=== PATIENT | male | born 1990 | race Caucasian/White ===

== ENCOUNTER 2017-06-06 05:39 | Day surgery (SDC) | payer OTHER ==
[2017-06-06] VITALS (8 sets, daily range): BP systolic 116–134; BP diastolic 60–87
[~2017-06-06] VITALS: Ht 177.8 cm; Wt 97.5 kg
--- NOTE | ~2017-06-06 | O ---
[facility] [place] [address] OPERATIVE REPORT Name: MANDI GORDON Room #: 548-I [facility].#: [id number] Admission: 06/06/17 Attend Phys: Prabhjot Hanks MD Discharge: Date of : 89 Report #: [id number] THIS REPORT FOR: //name// CC: FAM chiki Cordova DATE OF SERVICE: 06/06/2017 PATIENT OF: Dr. Prabhjot Hanks and Dr. German Moser. PREOPERATIVE DIAGNOSES: Cholelithiasis, cholecystitis, and biliary colic. POSTOPERATIVE DIAGNOSES: Cholelithiasis, cholecystitis, and biliary colic. PROCEDURE: Laparoscopic cholecystectomy with intraoperative cholangiography under fluoroscopic guidance. SURGEON: Prabhjot Hanks MD MEDICAL RESEARCH TECH: Jazmin Castellon RN ANESTHESIA: General. DESCRIPTION OF PROCEDURE: The patient was brought to the operating room and placed on operative table in the supine position. Sequential compression devices were in place for DVT prophylaxis. He was given an appropriate preoperative dose of antibiotics. The patient underwent a general endotracheal anesthesia and the abdomen was then prepped and draped in a sterile fashion. Skin and subcutaneous tissue around the umbilicus was then infiltrated with 0.5% Marcaine. Infraumbilical skin incision was then performed using #11 scalpel blade. Hemostasis obtained using electrocautery. Dissection was carried down through subcutaneous tissue to the fascia, which was then grasped between 2 Juan clamps and incised with the curved Taylor scissors. Peritoneum was entered and a pursestring suture of 0 Vicryl was then placed in the fascia. A 12-mm disposable Jaylene port was inserted through the opening and held into place with the balloon port and the pursestring suture. Pneumoperitoneum was obtained to a level of 10-15 mmHg. Laparoscope was inserted through this port and an exploration was performed, which revealed a very enlarged thickened dilated gallbladder with adhesions around it. There were no other intraabdominal abnormalities. Two lateral 5-mm Surgiport as well as an upper midline 11-mm Surgiport were all inserted under direct visualization after infiltration with 0.5% Marcaine. The gallbladder was then grasped and retracted superiorly and the cystic duct and artery were carefully dissected free. The cystic artery was doubly clipped on each side and divided with the scissors. I dissected the cystic duct all the way down to what appeared to be the cystic common bile duct [address] [address] OPERATIVE REPORT Name: MANDI GORDON Room #: 548-I [facility]#: [id number] Admission: 06/06/17 Attend Phys: Prabhjot Hanks MD Discharge: Date of : 89 Report #: [id number] junction, but I was not entirely sure. I decided to perform an intraoperative cholangiogram to be assured of the anatomy. An Angiocath was then inserted into the abdomen and the taut laparoscopic cholangiogram catheter was inserted through this Angiocath into the abdomen. A small opening was made in the cystic duct and the catheter was threaded into the cystic duct and held into place with a clip. Intraoperative cholangiography was then performed under fluoroscopic guidance, which showed free flow of contrast into the common bile duct and into the duodenum. The proximal common hepatic and right and left hepatic ducts were clearly identified. The clip was then removed. The catheter was removed and three clips were then placed on the cystic duct and the cystic duct was divided with the scissors. The gallbladder was then dissected free from the bed using the hook electrocautery. Prior to completing this dissection, the gallbladder was retracted superiorly and the bed inspected for hemostasis, which was obtained using electrocautery as well as several additional clips. After assuring hemostasis was intact, gallbladder was then transected from the bed and brought out through the periumbilical port and sent as specimen to pathology. The port was then returned to the abdomen. The area was then copiously irrigated with warm saline solution, which was suctioned free and hemostasis was checked and found to be intact. The ports were then all removed under direct visualization, hemostasis intact at each port site. Pneumoperitoneum was released and the periumbilical port was then also removed under direct visualization, hemostasis intact at that port site as well. The periumbilical fascia was then closed using the 0 Vicryl pursestring suture. The upper midline fascia was then closed using a julktt-ad-wmyft 0 Vicryl suture. Skin was then closed using interrupted vertical mattress 5-0 nylon sutures and the wound was dressed with Band-Aids. The patient was then awakened from the general endotracheal anesthesia, extubated, and taken to recovery room in good condition. Estimated blood loss was approximately 50 mL and the patient tolerated procedure well. All sponge, lap and instrument counts correct times 2. By: 1621 [id number] Prabhjot Hanks MD /nt
--- NOTE | ~2017-06-06 | S ---
[facility] [place] [address] SURGICAL PATH RPT PROCEDURE Name: LUCIANO GORDON Room #: DEP [facility]..#: [id number] Admission: 06/06/17 Date of : 89 Discharge: 06/06/17 Report #: [id number] Path Case #: [id number] PATHOLOGY REPORT COLLECTION DATE: 06/06/2017 RECEIVED DATE: 06/09/2017 SUBMITTING PHYS: Dr. Prabhjot Hanks OTHER PHYS: SPECIMEN(S) RECEIVED: A.Gallbladder * * * * * * * * * * * * FINAL DIAGNOSIS: Gallbladder, cholecystectomy: - Mild chronic cholecystitis. - Cholelithiasis. PATHOLOGIST: Eugenie Ridley M.D. REPORT ELECTRONICALLY SIGNED BY: Eugenie Ridley M.D. DATE/TIME: 06/10/2017 15:26 * * * * * * * * * * * * GROSS PATHOLOGY: Received in formalin labeled "Luciano Gordon, gallbladder," is a 11.5 x 4.8 x 2.1 cm, previously opened gallbladder with smooth, shiny, pale yellowtan serosal surfaces. The gallbladder is opened to show a pale tanyellow, spongy, bile stained mucosa and an average wall thickness of 0.3 cm. Calculi are present and no masses are noted grossly. [employer] sections from the body and fundus are submitted along with the proximal margin in cassette A1. (SNA; 06/09/2017) CLINICAL HISTORY: Cholecystitis and cholelithiasis INITIAL CPT CODE(S): A; 32232 Professional services performed by [facility] at [facility] [address] [place] [address] Technical services performed by [facility] at [address] [place] [address] [id number] [facility] [address] [place] [address] SURGICAL PATH RPT PROCEDURE Name: LUCIANO GORDON Room #: DEP [facility]#: [id number] Admission: 06/06/17 Date of : 89 Discharge: 06/06/17 Report #: [id number] Path Case #: [id number] [address] PHONE: [phone] DIRECTOR: Thomas Payne M.D. * * * END OF REPORT * * *
[~2017-06-06 05:39] MED LIST: BIOTIN5000 MCG PO; PANTOPRAZOLE SO40 M1 PO
[2017-06-06] MEDS ORDERED: NORCO 5-325 TA1 EACH PO (14:16)
== END 2017-06-06 21:32 | disposition home or self-care (01) ==
LOC: TBA 05:39 → OR 05:39 → 5S 17:36 → OR 21:32
DX: K80.18 Calculus of gallbladder with other cholecystitis without obstruction (principal); K21.9 Gastro-esophageal reflux disease without esophagitis; F17.220 Nicotine dependence, chewing tobacco, uncomplicated; Z88.8 Allergy status to other drugs, medicaments and biological substances
CPT/HCPCS: 50010; 50101; 50411; 50555; 50558; 51474; 51489; 52266; 53314; 55245; 55317; 55340; 56462; 56524; 56528; 62110; 62900; 70005